=== PATIENT | female | born 1970 | race Caucasian/White ===

== ENCOUNTER → 2017-02-09 | Outpatient (CLI) | payer BC | LOC: FIMAGING 08:58 | PROVIDERS: ATTEND Internal Medicine | DX: Z12.31 Encounter for screening mammogram for malignant neoplasm of breast (principal) | CPT/HCPCS: G0202 ==

== ENCOUNTER → 2017-08-14 | Outpatient (CLI) | payer BC | LOC: BMCIMAGING 13:47 | PROVIDERS: ATTEND Internal Medicine | DX: Z13.820 Encounter for screening for osteoporosis (principal); M81.0 Age-related osteoporosis without current pathological fracture ==

== ENCOUNTER → 2017-09-13 | Outpatient (CLI) | payer BC | LOC: BMCIMAGING 07:15 | PROVIDERS: ATTEND Internal Medicine Endocrinology, Diabetes & Metabolism | DX: E21.3 Hyperparathyroidism, unspecified (principal) | CPT/HCPCS: 76536-PO ==

== ENCOUNTER → 2018-02-11 | Outpatient (CLI) | payer BC | LOC: FIMAGING 11:12 | PROVIDERS: ATTEND Internal Medicine | DX: Z12.31 Encounter for screening mammogram for malignant neoplasm of breast (principal) ==

== ENCOUNTER → 2018-02-13 | Outpatient (CLI) | payer BC | LOC: FIMAGING 12:00 | PROVIDERS: ATTEND Internal Medicine | DX: R92.8 Other abnormal and inconclusive findings on diagnostic imaging of breast (principal) ==

== ENCOUNTER 2018-07-05 21:19 | Emergency (ER) | payer BC ==
[2018-07-05 21:26] VITALS: BP 121/70
--- NOTE | 2018-07-05 21:35 | EDPHY ---
H & P Stated Complaint: Lac R middle finger, cut on knife, some pain when bending finger Time Seen by Provider: 07/05/18 21:28 HPI/ROS: HPI: This is a 48-year-old female who presents with Chief Complaint: Lac R middle finger, cut on knife, some pain when bending finger Location: Right middle finger Quality: Laceration Duration: Prior to arrival Signs and Symptoms: + bleeding, no radiation, no numbness, no weakness, no tingling, no incontinence, no decreased range of motion, no swelling,+ pain, no fever Timing: Acute Severity: Mild Context: Patient is right-hand dominant, presents with accidentally cutting her right middle finger at the PIP joint on the volar aspect with a knife prior to arrival. She reports that her some pain with bending her finger. Denies radiation, weakness, decreased range of motion. Lidocaine allergy is to epinephrine which makes her heart race. Leaving for [facility] tomorrow. Modifying Factors: Direct pressure Comment: ROS: A comprehensive 10 system review of systems is otherwise negative aside from elements mentioned in the history of present illness. MEDICAL/SURGICAL/SOCIAL HISTORY: Medical history: Generally healthy. Does not take any regular medications. Surgical history: Hysterectomy Social history: Never smoked. CONSTITUTIONAL: Well-developed, well-nourished, middle-aged white female, awake and alert, no obvious distress HEENT: Atraumatic and normocephalic, PERRL, EOMI. Nares patent; no rhinorrhea; no nasal mucosal edema. Tympanic membranes clear. Oropharynx clear, no exudate and moist pink mucosa. Airway patent. No lymphadenopathy. No meningismus. Cardiovascular: Normal S1/S2, regular rate, regular rhythm, without murmur rub or gallop. PULMONARY/CHEST: Symmetrical and nontender. Clear to auscultation bilaterally. Good air movement. No accessory muscle usage. ABDOMEN: Soft, nondistended, nontender, no rebound, no guarding, no peritoneal signs, no masses or organomegaly. No CVAT. EXTREMITIES: 2/2 pulses, strength 5/5, right middle finger at the PIP joint just inferior to the joint space shows approximately 0.5 in superficial skin avulsion in C-shaped pattern; DI P PIP MCP joints have good flexion extension with good light touch sensation. no deformities, no clubbing, no cyanosis or edema. NEUROLOGICAL: no focal neuro deficits. GCS 15. SKIN: Warm and dry, no erythema. no rash. Good capillary refill. Source: Patient Exam Limitations: No limitations - Personal History LMP (Females 10-55): Hysterectomy Current Tetanus Diphtheria and Acellular Pertussis (TDAP): Yes - Medical/Surgical History Hx Asthma: No Hx Chronic Respiratory Disease: No Hx Diabetes: No Hx Cardiac Disease: No Hx Renal Disease: No Hx Cirrhosis: No Hx Alcoholism: No Hx HIV/AIDS: No Hx Splenectomy or Spleen Trauma: No Other PMH: partial hysterectomy - Social History Smoking Status: Never smoked Constitutional: Initial Vital Signs Temperature (C) 36.7 C 07/05/18 21:24 Heart Rate 67 07/05/18 21:24 Respiratory Rate 16 07/05/18 21:24 Blood Pressure 121/70 H 07/05/18 21:24 O2 Sat (%) 97 07/05/18 21:24 O2 Delivery Mode Room Air Allergies/Adverse Reactions: lidocaine Allergy (Verified 07/05/18 21:23) Home Medications: Medication Instructions Recorded Herbals/Supplements -Info Only 07/05/18 Medical Decision Making Procedures: Procedure: Laceration repair. Verbal consent was obtained from the patient. The 0.5 in, superficial, simple, C-shaped laceration on the right middle finger was anesthetized in the usual fashion using 3 mL of 1% lidocaine without epinephrine. The wound was irrigated , draped and explored to its base with a gloved finger. There were no deep structures involved. No tendon injury was identified. The wound was repaired with #3, 5-0 Prolene in simple interrupted pattern. Good hemostasis was achieved and patient tolerated procedure well. Xeroform and clean sterile dressing applied. The procedure was performed by myself. ED Course/Re-evaluation: Vital signs reviewed and stable upon arrival. Tetanus is up-to-date. Local anesthesia provided and irrigated copiously Closed with 5-0 Prolene x 3 Xeroform and clean sterile dressing applied Verbal and written wound care instructions provided No signs of neurovascular compromise/tenting of skin/compartment syndrome/ extremities and joints examined above and below area of concern and are neurovascularly intact. This patient was seen under the supervision of my secondary supervising physician. I evaluated care for this patient with attending. Differential Diagnosis: Differential diagnosis includes but is not limited to nerve injury, tendon injury, foreign body, laceration, abrasion Departure - Departure Disposition: Home, Routine, Self-Care Clinical Impression: Laceration of middle finger of right hand without complication Qualifiers: Encounter type: initial encounter Qualified Code(s): S61.212A - Laceration without foreign body of right middle finger without damage to nail, initial encounter Condition: Good Instructions: Care For Your Stitches (ED), Laceration (ED) Additional Instructions: Keep the dressing dry and in place for 48 hours. After 48 hours, you may remove the dressing; wash the site daily with mild soap and water; then pat dry. Take Tylenol 650 mg every 4 hours and/or Ibuprofen 600 mg every 8 hours with food as needed for pain. Do not get the laceration wet for 2 days. Do not soak or swim for 7 days. Wound Care Follow-Up: Removal of sutures in [10] days. Suture removal is complimentary in uncomplicated cases. Infection or abnormal findings would require reevaluation by the MD. In that case, you may be billed. Referrals: Ebony Alfaro MD [Primary Care Provider] - As per Instructions Robi Lee MD [Medical Doctor] - As per Instructions
== END 2018-07-05 22:13 | disposition home or self-care (01) ==
PROC: 0HQFXZZ Repair Right Hand Skin, External Approach (ICD-10-PCS; principal; 2018-07-05)
DX: S61.212A Laceration without foreign body of right middle finger without damage to nail, initial encounter (principal); W26.0XXA Contact with knife, initial encounter; Y99.9 Unspecified external cause status

== ENCOUNTER → 2018-08-22 | Outpatient (CLI) | payer BC | LOC: BMCIMAGING 13:19 | PROVIDERS: ATTEND Internal Medicine Endocrinology, Diabetes & Metabolism | DX: M81.0 Age-related osteoporosis without current pathological fracture (principal) ==